=== PATIENT | male | born 1990 | race Two or more races ===

== ENCOUNTER 2022-01-28 04:34 | Emergency (ER) | payer OTHER ==
[~2022-01-28] VITALS: Ht 165.1 cm; Wt 79.5 kg
[2022-01-28] MEDS ORDERED: IBUP-2492 PO (05:04)
[2022-01-28] MEDS ORDERED: LORA10TA7 PO (05:04)
[2022-01-28] MEDS ORDERED: FLUT15.812 NASAL (05:04)
[2022-01-28] MEDS ORDERED: PRAZ2 PO (05:04)
[2022-01-28] MEDS ORDERED: ARIP10TA38 PO (05:04)
[2022-01-28] MEDS ORDERED: ALBU8HFA IH (05:04)
[2022-01-28 06:44] VITALS: BP 140/97
[2022-01-28] MEDS ORDERED: IBUPROFEN 600 MG TABLET PO ONE (06:45)
[2022-01-28] MEDS ORDERED: CEPHALEXIN MONOHYDRATE 500 MG CAPSULE PO ONE (06:45)
[2022-01-28] MEDS ORDERED: TraMADol HCL 50 MG TABLET PO ONE (06:45)
[2022-01-28] MEDS ORDERED: IBUP-1554 PO (06:50)
[2022-01-28] MEDS ORDERED: ACET-66 PO (06:50)
[2022-01-28] MEDS ORDERED: PENI500T2 PO (06:50)
== END 2022-01-28 07:08 | disposition home or self-care (01) ==
LOC: EMS 04:40
DX: K08.89 Other specified disorders of teeth and supporting structures (principal); J45.909 Unspecified asthma, uncomplicated; F15.90 Other stimulant use, unspecified, uncomplicated; Z79.899 Other long term (current) drug therapy
CPT/HCPCS: 99284; Z7502; Z7610